=== PATIENT | female | born 1950 | race Caucasian/White ===

== ENCOUNTER 2024-10-31 11:57 | Outpatient (AMB) | payer MEDICARE, SELFPAY ==
--- NOTE | 2024-10-31 12:14 | MHC.OFFVIS ---
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 Overall presentation was suggestive of vascular plus degenerative dementia with significant behavioral issues including anger and inappropriate behavior. She is presenting with cognitive decline. Her memory has been declining progressively, causing a history of forgetfulness and accusations that others are fabricating or making up events that she cannot recall. This decline has caused incidents such as the failure to recognize or remember bookings and financial transactions, leading to agitation. The patient's memory lapses have also resulted in her responding to misleading computer security alerts. Additionally, she suffers from anxiety and insomnia, with difficulty in initiation of sleep and a delayed waking schedule, for which hydroxyzine is prescribed. The patient?s cognitive symptoms are under treatment with memantine and quetiapine, while depression is managed with sertraline. Transition from trazodone to hydroxyzine was made to address the persistent sleep issues. There is, however, concern regarding her medication management due to symptoms of intermittent dry mouth, which may indicate improper dosing or timing. These behavioral and cognitive challenges suggest a need for closer monitoring given the potential for the patient's self-reported perfect compliance not aligning with observed symptomatic episodes. [facility] Medical History (Updated 10/31/24 @ 12:16 by Neris Keane MD) Dementia, unspecified, with behavioral disturbance Multifactorial dementia Cerebral atrophy Cerebral microvascular disease Review of Systems Const Details: - Cognitive: Reports memory decline, forgetfulness, and confusion. - Psychiatric: Reports anxiety and agitation. - Neurological: Denies hallucinations. - Sleep: Reports insomnia and altered sleep-wake cycle. - Oral: Reports intermittent dry mouth. Physical Exam Neuro Other: Mental Status: Alert and oriented to person, place, and time. Normal attention. Normal spontaneous speech, fluency, and comprehension. Extrapyramidal: Full facial expressions and blinking. No rigidity. Movements are appropriate with no tremor or abnormality. Speech: Normal; no dysarthria or tremor. Assessment & Plan Assessment & Plan (1) Cerebral microvascular disease: Comment: MRI brain WO at [facility] in 2017: Mod to severe MVD, mild diff atrophy. Code(s): I67.89 - Other cerebrovascular disease Category: Medical (2) Multifactorial dementia: Code(s): F03.90 - Unspecified dementia, unspecified severity, without behavioral disturbance, psychotic disturbance, mood disturbance, and anxiety Category: Medical Plan Impression: Multifactorial (vascular plus degenerative) dementia Rec: a: Sertraline 100mg a day b: Memantine 10mg bid c: Donepezile 5mg at night d: Quetiapine 25mg bid Medications: New donepezil 5 mg PO DAILY 90 tabs 1RF quetiapine 50 mg PO BID 180 tabs 1RF sertraline 100 mg PO DAILY 90 tabs 1RF memantine 5 mg PO BID 180 tabs 1RF Patient Instructions: To manage cognitive decline, we have decided to initiate treatment with donepezil, aiming to improve memory along with her ongoing use of memantine and quetiapine. Anxiety and agitation treatment continue with sertraline and hydroxyzine is prescribed to assist with sleep concerns. It is advised that the patient streamlines medication administration using pre-filled blister packs from the pharmacy. The patient was counseled regarding precautions with financial activities, employing secure electronic transactions. A follow-up is scheduled for six months to monitor the efficacy and adjustments to the current plan. Patient was informed and verbally consented to the use of an ambient scribe for clinic note documentation during this visit. Coding Level of Care Code Tele New Pt Level 4 (29589) Diagnoses Cerebral microvascular disease I67.89 Multifactorial dementia F03.90
--- OUTSIDE RECORDS SUMMARY | 2024-10-31 13:08 | XMS_ITS | Encounter Summary ---
Author Organization [facility] Address [address] [place] [address] Phone Care Team Providers Care Hospital Chief Financial Officer Name Role Phone Ayden Thakkar MD Primary Care Provider [phone] Encounter Details Date Type Department Care Team (Late st Contact Info) Description 08/06/2021 Documentation Only [facility], [address] [place] [address] Denzel Mahoney MD [address] [place] [address] Social History Tobacco Use Types Packs/Day Years Used Date Smoking Tobacco: Former Alcohol Use Standard Drinks/Week Comments No 0 (1 standard drink = 0.6 oz pur e alcohol) Comments Unknown Sex and Gender Information Value Date Recorded Sex Assigned at Not on file Legal Sex Female 4:35 PM EST Gender Identity Not on file Sexual Orientation Not on file documented as of this encounter Plan of Treatment Not on file documented as of this encounter Visit Diagnoses Not on filedocumented in this encounter Care Teams Hospital Chief Financial Officer Relationship Specialty Start Date End Date Ayden Thakkar MD [address] [place] [phone] PCP - General Internal Medicine 07/23/19 documented as of this encounter
--- OUTSIDE RECORDS SUMMARY | 2024-10-31 13:08 | XMS_ITS | Clinical Summary ---
Author Organization [address] Address [address] [place] [phone] Phone Care Team Providers Care Asp Net Developer Name Role Phone William Genao MD Primary Care Pr ovider Allergies Active Allergy Reactions Criticality Noted Date Comments Oxycodone-Aspirin 05/21/2013 Medications OneTouch UltraSoft Lancets 1 Lancet by extracorporeal route 2 (two) times a day. 03/28/19 24 Active FLUoxetine (PROzac) 20 mg capsule Take 1 capsule (20 mg total) by mouth 2 (two) times a day. 12/23/19 23 Active traZODone (DESYREL) 50 mg tablet Take 1 tablet (50 mg total) by mouth. 12/23/19 23 Active metFORMIN (GLUCOPHAGE) 1,000 mg tablet Take 1 tablet (1,000 mg total) by mouth. 02/17/20 23 Active lancets 33 gauge misc 1 Lancet by Not Applicable route. 01/25/20 23 Active isopropyl alcohol-benzo jewel 70-6 % pads, medicated 1 each by Not Applicable route. 01/25/20 23 Active lisinopril (PRINIVIL,ZES TRIL) 40 mg tablet Take 1 tablet (40 mg total) by mouth 1 (one) time each day. 01/07/20 23 Active biotin 1 mg capsule Take 1 capsule by mouth. 06/25/19 20 Active blood-glucose meter kit 1 Lancet by extracorporeal route 2 (two) times a day. 01/14/20 23 Active albuterol HFA (PROAIR HFA ; PROVENTIL HFA ; VENTOLIN HFA) 90 mcg/actuation inhaler Inhale 2 puffs. 09/01/19 23 Active blood sugar diagnostic (ONETOUCH ULTRA BLUE TEST STRIP [facility]) USE TO TEST BLOOD SUGAR TWICE DAILY 09/18/19 21 Active multivitamin (MULTIPLE VITAMINS ORAL) Take 1 tablet by mouth 1 (one) time each day. Active folic acid (FOLVITE) 1 mg tablet TAKE 1 TABLET BY MOUTH DAILY 90 tablet 05/09/19 25 Active lovastatin (MEVACOR) 40 mg tablet Take 1 tablet (40 mg total) by mouth at bedtime. 30 tablet 05/09/19 25 Active omeprazole (PriLOSEC) [address] capsule TAKE 1 CAPSULE BY MOUTH TWICE DAILY 180 capsule 05/01/19 25 Active magnesium oxide 250 mg magnesium tablet TAKE 1 TABLET BY MOUTH ONCE DAILY 90 tablet 05/09/19 25 Active glipiZIDE (GLUCOTROL) 5 mg tablet TAKE 1 TABLET BY MOUTH DAILY 90 tablet 05/09/19 25 Active apixaban (Eliquis) 2.5 mg tablet TAKE 1 TABLET BY MOUTH TWICE DAILY 60 tablet 07/18/19 25 Active fluticasone-s almeterol (ADVAIR DISKUS) 250-50 mcg/dose diskus inhaler INHALE 1 PUFF INTO THE LUNGS TWICE DAILY 180 each 10/20/19 25 Active fluticasone-s almeterol (ADVAIR DISKUS) 250-50 mcg/dose diskus inhaler INHALE 1 PUFF INTO THE LUNGS TWICE DAILY 180 each 05/09/19 25 2024 Discontinued Active Problems Problem Noted Date Diagnosed Date History of pulmonary embolus (PE) 05/18/2023 FHx: malignant neoplasm of breast in first degre e relative 05/18/2023 BRCA negative 05/18/2023 History of colon polyps 05/18/2023 Current moderate episode of major depressive disorder (CMS/HCC V24, CMS/HCC V28) 02/16/2023 DNR (do not resuscitate) 02/16/2023 Gastroesophageal reflux disease without esophagi tis 02/16/2023 Insomnia 02/16/2023 Osteopenia 02/16/2023 Eczema 01/06/2023 CKD (chronic kidney disease) stage 3, GFR 30-59 ml/min ([facility] V24, [facility] V28) 08/20/2019 Urge incontinence of urine 06/08/2017 Type 2 diabetes mellitus wit h microalbuminuria, without long-term current use of insulin ([facility] V24, [facility] V28) 03/03/2017 Recurrent deep vein thrombos is (DVT) of left lower extremity ([facility] V24, [facility] V28) 03/26/2016 Rectus diastasis 05/17/2014 Microalbuminuria 01/21/2014 Hyperlipidemia with target LDL less than 100 09/2013 Overview (05/18/2023): IMO update Asthma 05/21/2013 Bipolar 2 disorder ([facility] V24, [facility] V28) Overview (05/18/2023): Mayelin Gardner Solitary kidney, congenital 05/21/2013 Overview (05/18/2023): Dr. Mahoney- feels ok to continue pt on metformin for now ( has had fulctuating GFR) 05/31/2014. Immunizations Name Administration Dates Next Due Influenza trivalent, 0.5mL ( Fluzone High-dose) 65yo and older 01/06/2023,12/22/2021,02/27/2021,11/27,02/16/2019 Pneumococcal conjugate 13 va lent (Prevnar 13, PCV13) 2mo and older 06/24/2016 Pneumococcal conjugate 20 va lent (Prevnar 20, PCV 20) 2mo and older 02/16/2023 Pneumococcal polysaccharide 23 valent (Pneumovax 23) 2yo and older 01/01/2015 Tdap Tetanus diptheria acell ular pertussis (Boostrix; Adacel) 7yo and older 01/01/2015 Zoster Live 04/17/2014 Surgical History Surgery Date Site/Laterality Comments OTHER SURGICAL HISTORY 2006 PROCEDURE: ---- OTHER ----; COMMENT: right ankle fracture OTHER SURGICAL HISTORY PROCEDURE: ---- OTHER ----; COMMENT: bone spure left foot HERNIA REPAIR PROCEDURE: HISTORICAL HERNIA REPAIR/ING SECTION PROCEDURE: HISTORICAL DELIVERY; COMMENT: midline BREAST BIOPSY 1999 Left PROCEDURE: BX BREAST; PERC NEEDLE CORE W/IMAG GUID; COMMENT: upper inner left cyst COLONOSCOPY 01/31/15 PROCEDURE: HISTORICAL COLONOSCOPY; COMMENT: adenoma and tics; repeat in 3 yrs under propofol Medical History Medical History Date Comments Meniere disease DX:Meniere disea se; COMMENT: meclizine, surgery Type II or unspecified type diabetes mellitus with unspecified complication, not stated as uncontrolled DX:Type II or unspecified t ype diabetes mellitus with unspecified complication, not stated as uncontrolled BRCA negative DX:BRCA negative History of colon polyps 02/12/2019 DX:Histo ry of colon polyps Gastroesophageal reflux dise ase without esophagitis 02/16/2023 DX:Gastroesophageal reflux d isease without esophagitis Family History Medical History Relation Name Comments Other: heart attack Father biologic al father ? age at Other: heart attack Maternal Grandfather ? cause of Alzheimer's disease Maternal Grandmother at age 90 Alzheimer's disease Mother at age 81 Breast cancer Sister 1 54 also ovarian/c ervical ca; mat 1/2 sis Heart attack Sister 2 mat 1/2 sister; also bone ca + lung Alzheimer's disease Uncle maternal Blindness Neg Hx Cataracts Neg Hx Glaucoma Neg Hx Macular degeneration Neg Hx Strabismus Neg Hx Uterine cancer Neg Hx Relation Name Status Comments Father Maternal Grandfather Maternal Grandmother Mother Sister 1 54 Sister 2 Uncle Social History Tobacco Use Types Packs/Day Years Used Date Smoking Tobacco: Former Cigarettes 0 03/14/1974 - 03/14/1994 Smokeless Tobacco: Never Alcohol Use Standard Drinks/Week Comments No 0 (1 standard drink = 0.6 oz pur e alcohol) Comments Unknown Sex and Gender Information Value Date Recorded Sex Assigned at Not on file Legal Sex Female 11:09 PM EST Gender Identity Not on file Sexual Orientation Not on file Obstetrics History Last Filed Vital Signs Vital Sign Reading Time Taken Comments Blood Pressure 131/64 11/02/2023 10:35 AM EDT Pulse 62 11/02/2023 10:35 AM EDT Temperature - - Respiratory Rate - - Oxygen Saturation - - Inhaled Oxygen Concentration - - Weight 69.4 kg (153 lb) 11/02/2023 10:35 AM EDT Height 147.3 cm (4' 10 ) 11/02/2023 10:35 AM EDT Body Mass Index 31.98 11/02/2023 10:35 AM EDT Plan of Treatment Health Maintenance Due Date Last Done Comments Diabetes: Annual Foot Exam 1960 Diabetes: Annual Retina Eye Exam 1960 RSV Immunization Adult Patients (1 - Risk 60-74 years 1-dose series) 2010 Zoster Vaccines (1 of 2) 06/12/2014 04/17/2014 Breast Cancer Screening 09/14/2019 09/13/2017 Colorectal Cancer Screening: Colonoscopy 02/20/2022 Falls Risk Assessment 02/20/2022 Hepatitis C Screening 02/20/2022 Medicare Annual Wellness Visit 02/20/2022 Social Influencers of Health Screening 02/20/2022 Diabetes: Annual Urine Albumin-Creatinine Ratio (uACR) 02/26/2022 COVID-19 Vaccine ( season) 2023 01/08/2021, 07/10/2020, 06/18/2020 Depression Screening 03/14/2024 Diabetes: Blood Sugar Control Test (HGBA1C) 05/04/2024 11/02/2023 Diabetes: Annual GFR (Glomerular Filtration Rate) 11/01/2024 11/02/2023 Hypertension/CHF/CAD Annual BMP Blood Test 11/01/2024 11/02/2023 Influenza Vaccine (#1) 2024 , 12/22/2021, 02/27/2021, Additional history exists DTaP,Tdap,and Td Vaccines (2 - Td or Tdap) 01/01/2025 01/01/2015 Osteoporosis Screening (Bone Density Screening) 08/24/2027 08/23/2017 Cholesterol Screening (Lipid Panel) 11/01/2028 11/02/2023 Pneumococcal Vaccine: 50+ Years Completed 02/16/2023, 06/24/2016, 03/03/2016, Additional history exists HIB Vaccines Aged Out No longer eligi ble based on patient's age to complete this topic HPV Vaccines Aged Out No longer eligi ble based on patient's age to complete this topic Hepatitis A Vaccines Aged Out No long er eligible based on patient's age to complete this topic Hepatitis B Vaccines Aged Out No long er eligible based on patient's age to complete this topic IPV Vaccines Aged Out No longer eligi ble based on patient's age to complete this topic MMR Vaccines Aged Out No longer eligi ble based on patient's age to complete this topic Meningococcal ACWY Vaccine Aged Out N o longer eligible based on patient's age to complete this topic Meningococcal B Vaccine Aged Out No l onger eligible based on patient's age to complete this topic RSV Immunization Patients Under 20 months Aged Out No longer eligible based on patient's age to complete this topic Varicella Vaccines Aged Out No longer eligible based on patient's age to complete this topic Procedures Procedure Name Priority Date/Time Associated Diagnosis Comments SCR MAMMO BI INCL CAD Routine 09/13/2017 2:53 PM EDT Encounter for screening mammogram for malignant neoplasm of breast DXA BONE DENISTY STUDY VERTEBRAL FRACTURE, INCLUDING LATERAL VIEW Routine 08/23/2017 3:42 PM EDT Encounter for screening for osteoporosis from Last 3 Months or Most Recently Relevant to Health Maintenance Results * SCR MAMMO BI INCL CAD (09/13/2017 2:53 PM EDT) Anatomical Region Laterality Modality Radiographic Ilana ging 06/08/2017 10:0 8 AM EDT Narrative 09/15/2017 9:25 AM EDT This is a summary report. The complete report is available in the patient's medical record. If you cannot access the medical record, please contact the sending organization for a detailed fax or copy. Full field digital screening mammography, reviewed with CAD and compared to previous. The breasts are composed of fatty and fibroglandular tissue. No suspicious mass, architectural distortion or suspicious calcifications are identified. IMPRESSION: : No mammographic evidence of malignancy. BIRADS 1-Negative; N. 5 year breast cancer risk assessment 3.8 % Lifetime breast cancer risk assessment 12.7 % Breast cancer risk category Low (<15%) Procedure Note Vega Juarez MD - 03/02/2022 This is a summary report. The complete report is available in thepatient's medical record. If you cannot access the medical record, pleasecontact the sending organization for a detailed fax or copy. Full field digital screening mammography, reviewed with CAD and comparedto previous. The breasts are composed of fatty and fibroglandular tissue.No suspicious mass, architectural distortion or suspicious calcificationsare identified. IMPRESSION: : No mammographic evidence of malignancy. BIRADS 1-Negative; N. 5 year breast cancer risk assessment 3.8 % Lifetime breast cancer risk assessment 12.7 % Breast cancer risk category Low (<15%) Wendi Barton NP IMG XR PROCEDURES Final Resul t * DXA BONE DENISTY STUDY VERTEBRAL FRACTURE, INCLUDING LATERAL VIEW (08/23/2017 3:42 PM EDT) Anatomical Region Laterality Modality Ultrasound 06/08/2017 10:1 1 AM EDT Narrative 08/23/2017 4:18 PM EDT BONE DENSITY (DEXA) Lumbar Spine T-score is -1.1. (SD relative to 20-29 y/o adult) Z-score is 0.8. (SD relative to age matched peers) This is considered osteopenia by WHO criteria. Left Hip T-score is -2.1. Z-score is -0.4. This is considered osteopenia by WHO criteria. Lateral view of the spine shows vertebral heights to be maintained. IMPRESSION: This patient is considered to have osteopenia by WHO criteria. This patient has a 41% risk of major osteoporotic fracture and a 7.0% risk of hip fracture over the next 10 years. (World Health Organization Fracture Risk Assessment) The [facility] Department of Internal Medicine recommends using National Osteoporosis Foundation (NOF) guidelines in treatment decisions related to osteoporosis. NOF guidelines suggest considering treatment for postmenopausal women and men aged 50 or older presenting with the following: History of hip or vertebral fracture. T-score = -2.5 (DXA) at the femoral neck, total hip, or spine, after appropriate evaluation to exclude secondary causes. Low bone mass (T-score between -1.0 and -2.5 at the femoral neck or spine) AND a 10-year probability of a hip fracture = 3% OR a 10-year probability of a major osteoporosis-related fracture = 20% based on the [place]-adapted WHO algorithm Please note that all treatment decisions require clinical judgment and consideration of individual patient factors, including patient preferences, co-morbidities, previous drug use, risk factors not captured in the FRAX model (e.g., frailty, falls, vitamin D deficiency, increased bone turnover, interval significant decline in bone density) and possible under- or over-estimation of fracture risk by FRAX. Optional alternative screening schedule based on melecio Valle., [facility] [place] April 01, 2011 for patients with osteopenia (based on hip BMD T-score) is as follows: * advanced osteopenia (T scores -2.00 to -2.49), BMD testing every year * moderate osteopenia (T scores -1.50 to -1.99), BMD testing every 5 years mild osteopenia or normal BMD (T scores -1.50 and higher), BMD testing every 15 years Procedure Note Tiera Head MD - 03/02/2022 BONE DENSITY (DEXA) Lumbar Spine T-score is -1.1. (SD relative to 20-29 y/o adult) Z-score is 0.8. (SD relative to age matched peers) This is considered osteopenia by WHO criteria. Left Hip T-score is -2.1. Z-score is -0.4. This is considered osteopenia by WHO criteria. Lateral view of the spine shows vertebral heights to be maintained. IMPRESSION: This patient is considered to have osteopenia by WHO criteria. Thispatient has a 41% risk of major osteoporotic fracture and a 7.0% risk of hip fracture over the next10 years. (World Health Organization Fracture Risk Assessment) [facility] Department of Internal Medicine recommendsusing National Osteoporosis Foundation (NOF) guidelines in treatment decisions related toosteoporosis. NOF guidelines suggest considering treatment for postmenopausal women and menaged 50 or older presenting with the following: History of hip or vertebral fracture. T-score = -2.5 (DXA) at the femoral neck, total hip, or spine, afterappropriate evaluation to exclude secondary causes. Low bone mass (T-score between -1.0 and -2.5 at the femoral neck or spine)AND a 10-year probability of a hip fracture = 3% OR a 10-year probability of a majorosteoporosis-related fracture = 20% based on the [place]-adapted WHO algorithm Please note that all treatment decisions require clinical judgment andconsideration of individual patient factors, including patient preferences, co- morbidities,previous drug use, risk factors not captured in the FRAX model (e.g., frailty, falls, vitaminD deficiency, increased bone turnover, interval significant decline in bone density) andpossible under- or over-estimation of fracture risk by FRAX. Optional alternative screening schedule based on monae Valle al., NEJMJanuary 2011 for patients with osteopenia (based on hip BMD T-score) is as follows: * advanced osteopenia (T scores -2.00 to -2.49), BMD testing every year * moderate osteopenia (T scores -1.50 to -1.99), BMD testing every 5years mild osteopenia or normal BMD (T scores -1.50 and higher), BMD testingevery 15 years us Wendi Barton NP IMG US PROCEDURES Final Resul t from Last 3 Months or Most Recently Relevant to Health Maintenance Insurance [place]IC[place] ADVANT[place] Care Teams Asp Net Developer Relationship Specialty Start Date End Date William Genao MD [address] [place] [phone] PCP - General 08/24/22
--- OUTSIDE RECORDS SUMMARY | 2024-10-31 13:09 | XMS_ITS | Patient Health Record ---
Author Organization [facility] Address [address] [place] [address] Care Team Providers Care Web Assistant Name Role Phone Janiya Mejía Unavailable [phone] Reason For Referral No Information Medications Medication SIG (Take, Route, Fr equency, Duration) Notes Start Date End Date Status Advair Diskus 250-50 1 Inhalation TWICE DAILY; Duration: -3 [facility] 03/16/2011 Active Lisinopril 20MG 1 ORAL daily; Duration: -3 [facility] 012 Active Aspirin EC 81MG 1 ORAL daily; Duration: -3 [facility] 011 Active Lovastatin 40MG 1 ORAL DAILY; Duration: -3 [facility] 012 Active Lisinopril 10MG 1 ORAL daily; Duration: -3 [facility] 011 Active Lantus 100UNIT/ML Subcutaneous at bedt steven; Duration: 3 [facility] 02/16/2011 Active Proventil HFA 108 MCG 2 Inhalation four times daily; Duration: -3 [facility] 05/21/2011 Active lamoTRIgine 200MG 1 ORAL twice daily; Duration: 3 [facility] 11/03/2011 Active glipiZIDE 10MG 1 ORAL twice daily; Duration: -3 [facility] 03/01/2011 Active Omeprazole 20MG 1 ORAL twice daily; Duration: 3 [facility] 05/06/2011 Active Calcium-Carb 600 + D 1 ORAL daily; Duration: 3 [facility] Active metFORMIN HCl 500MG 1 ORAL twice daily; Duration: 3 [facility] 10/20/2011 Active Fish Oil 1200MG 1 ORAL daily; Duration: -3 [facility] 012 Active Multivitamins 1 ORAL daily; Duration: -3 [facility] 1 Active Immunizations Vaccine Route Administration Date Status Comme nts Influenza, live, intranasal Intramuscular 02/16/2011 Pendi ng Influenza, live, intranasal Intramuscular 08/30/2011 Pendi ng Problems Problem Type SNOMED Code ICD Code Onset Dates Problem Status W/U Status Risk Notes Problem Chronic bipolar I disorder, most recent episode depressed (disorder) (81425094) Bipolar I disorder, most recent episode (or current) depressed, unspecified (296.50) Active confirmed Major Problem Type II diabetes mellitus without complication (760314946) Diabetes mellitus without mention of complication, type II or unspecified type, not stated as uncontrolled (250.00) Active confirmed Major Problem Type II diabetes mellitus uncontrolled (464674460) Diabetes mellitus without mention of complication, type II or unspecified type, uncontrolled (250.02) Active confirmed Major Problem Hyperlipidemia (61427073) Other and unspecified hyperlipidemia (272.4) Active confirmed Major Problem Obesity (911940563) Obesity, unspecified (278.00) Active confirmed Major Problem Anxiety state (649311132) Anxiety state, unspecified (300.00) Active confirmed Major Problem Depressive disorder (97930726) Depressive disorder, not elsewhere classified (311) Active confirmed Major Problem Essential hypertension (13468034) Unspecified essential hypertension (401.9) Active confirmed Major Problem Asthma (disorder) (282653860) Asthma, unspecified, unspecified status (493.90) Active confirmed Major Problem Osteoarthritis (501028344) Osteoarthrosis, unspecified whether generalized or localized, unspecified site (715.90) Active confirmed Major Problem Osteoporosis (72670391) Unspecified osteoporosis (733.00) Active confirmed Major Problem Malaise and fatigue (064690012) Other malaise and fatigue (780.79) Active confirmed Diag Problem Weight decreased (039807147) Loss of weight (783.21) Active confirmed Diag Problem Abdominal pain (finding) (34183635) Abdominal pain, unspecified site (789.00) Active confirmed Diag Problem Gynecological examination normal (387407085669526) Routine gynecological examination (V72.31) Active confirmed Diag Problem Dietary management surveillance (936273919) Dietary surveillance and counseling (V65.3) Active confirmed Diag Problem Exercises teaching, guidance, and counseling (404613078) Exercise counseling (V65.41) Active confirmed Diag Plan Of Treatment No Information Insurance Providers Payer Name Payer Address Payer Phone Subscriber Number Group Number Insured Name Patient Relationship to Insured Coverage Start Date Coverage End Date [employer] MEDICARE PPO [address] [place] [address] [phone] [id number] Self - patient is the insured
== END 2024-10-31 12:30 | disposition home or self-care (01) ==
LOC: HO.HSM 11:57
PROVIDERS: PCP Family Medicine; Referring Provider Family Medicine; Visit Provider Psychiatry & Neurology Neurology
DX: I67.89 Other cerebrovascular disease (principal); F03.90 Unspecified dementia, unspecified severity, without behavioral disturbance, psychotic disturbance, mood disturbance, and anxiety
CPT/HCPCS: 99204

== ENCOUNTER → 2024-10-31 11:57 | Outpatient (BNVA) | payer MEDICARE, SELFPAY | PROVIDERS: PCP Family Medicine; Referring Provider Family Medicine; Visit Provider Psychiatry & Neurology Neurology | DX: F01.518 Vascular dementia, unspecified severity, with other behavioral disturbance (principal); I67.89 Other cerebrovascular disease; G47.00 Insomnia, unspecified; F31.81 Bipolar II disorder; F41.9 Anxiety disorder, unspecified | CPT/HCPCS: 99202 ==